=== PATIENT | female | born 1960 | race Two or more races ===

== ENCOUNTER 2019-01-03 16:44 | Emergency (ER) | payer SELFPAY ==
[~2019-01-03] VITALS: Ht 157.5 cm; Wt 59.0 kg
[2019-01-03 16:45] VITALS: BP 110/70
[2019-01-03] MEDS ORDERED: diphenhdrAMINE HCL 50 MG/1 ML VL IM ONE (17:15)
== END 2019-01-03 18:04 | disposition home or self-care (01) ==
LOC: EDBD 16:44 → ER 16:44
DX: F41.1 Generalized anxiety disorder (principal); Z80.0 Family history of malignant neoplasm of digestive organs
CPT/HCPCS: 96372; 99284; J1200